=== PATIENT | male | born 1970 | race Caucasian/White ===

== ENCOUNTER 2017-08-21 20:12 | Emergency (ER) | payer BC ==
[2017-08-21 20:25] VITALS: BP 156/104
[2017-08-21] MEDS ORDERED: Doxycycline 100 MG Cap PO ONE (21:12)
--- NOTE | 2017-08-21 21:18 | EDM.PDOC ---
ED HPI GENERAL MEDICAL PROBLEM - General Chief Complaint: Burn Stated Complaint: BURN ON LEFT WRIST Time Seen by Provider: 08/21/17 20:23 Source of Information: Reports: Patient History Limitations: Reports: No Limitations - History of Present Illness INITIAL COMMENTS - FREE TEXT/NARRATIVE: The patient is a 47-year-old male with chief complaint of burn to the left wrist. Injury occurred almost a week ago. He burned it on some hot radiator fluid. He had been caring for it at home and today became concerned because it seemed more painful and had a little bit more redness around it. No new injury. Pain is moderate. Worse with hand movements. No fevers. No additional complaints. He has been washing it when he showers. Left Wrist Pain Score (Numeric/FACES): 6 - Related Data Allergies Allergy/AdvReac Type Severity Reaction Status Date / Time No Known Allergies Allergy Verified 08/21/17 20:25 Home Meds: Home Meds Doxycycline [Vibramycin] 100 mg PO DAILY #20 cap 08/21/17 [Rx] Past Medical History - Past Health History Medical/Surgical History: Denies Medical/Surgical History Neurological History: Reports: Migraines Dermatologic History: Reports: Other (See Below) Other Dermatologic History: hx previous burn to foot Social & Family History - Family History Family Medical History: Noncontributory - Tobacco Use Smoking Status *Q: Current Every Day Smoker Years of Tobacco use: 20 Packs/Tins Daily: 2 Used Tobacco, but Quit: No Second Hand Smoke Exposure: No - Caffeine Use Caffeine Use: Reports: Coffee - Alcohol Use Days Per Week of Alcohol Use: 0 - Recreational Drug Use Recreational Drug Use: No ED ROS GENERAL - Review of Systems Review Of Systems: See Below Constitutional: Denies: Fever Cardiovascular: Reports: No Symptoms Musculoskeletal: Reports: Arm Pain Skin: Reports: Burn(s) ED EXAM, BURN/SMOKE INHALATION - Physical Exam Exam: See Below Exam Limited By: No Limitations General Appearance: Alert, WD/WN, No Apparent Distress Eye Exam: Bilateral Eye: Normal Inspection Ears (Abbreviated): Normal External Exam Mouth/Throat: No Symptoms Reported Head: No Symptoms Neck: No Symptoms Respiratory: No Respiratory Distress Cardiovascular: Normal Peripheral Pulses Extremities: Other (Left upper extremity: Palmar surface of the left wrist has a approximately 3 x 2 cm patch of erythema and old-appearing blisters consistent with old partial thickness burn. There is mild surrounding erythema and tenderness. Mild warmth. No induration. No fluctuance. No purulence.) Neurological: Alert, Oriented Psychiatric: Normal Affect, Normal Mood Skin Exam: Warm, Dry, Intact, Normal Color, No Rash Course - Vital Signs Last Recorded V/S: Last Vital Signs Temp 36.2 C 08/21/17 20:22 Pulse 68 08/21/17 20:22 Resp 18 08/21/17 20:22 BP 156/104 H 08/21/17 20:22 Pulse Ox 97 08/21/17 20:22 - Orders/Labs/Meds Meds: Medications Discontinued Medications Generic Name Dose Route Start Last Admin Trade Name Freq PRN Reason Stop Dose Admin Doxycycline Hyclate 100 mg 08/21/17 21:12 08/21/17 21:19 Vibramycin PO 08/21/17 21:13 100 mg ONETIME ONE Administration - Re-Assessments/Exams Free Text/Narrative Re-Assessment/Exam: 08/21/17 23:25 Patient with old appearing burn injury, partial thickness, small and localized to the anterior surface of the left wrist, with possible early cellulitis. He has had increased pain and erythema, we will treat with doxycycline. Discussed need for follow-up and provided clinic phone number for him to arrange during daytime hours. Discussed return precautions. Departure - Departure Time of Disposition: 21:13 Disposition: Home, Self-Care 01 Clinical Impression: Burn of left wrist Qualifiers: Encounter type: initial encounter Burn degree: partial thickness (2nd degree) Qualified Code(s): T23.272A - Burn of second degree of left wrist, initial encounter - Discharge Information Prescriptions: Doxycycline [Vibramycin] 100 mg PO DAILY #20 cap Instructions: Burn Care, Adult, [id number] Referrals: PCP,None [Primary Care Provider] - Forms: ED Department Discharge Additional Instructions: 1. Keep wound clean and dry. Wash daily and cover with antibiotic ointment. 2. Take doxycycline as prescribed. 3. Take ibuprofen as prescribed for pain. You may take tylenol (acetaminophen) as needed in addition to ibuprofen. 4. Follow up with clinic provider later this week for a wound check. 5. Return to the ED if you have worsening pain, redness, swelling, or fever.
== END 2017-08-21 21:45 | disposition home or self-care (01) ==
LOC: JD.ED 20:12
DX: T23.272A Burn of second degree of left wrist, initial encounter (principal); F17.210 Nicotine dependence, cigarettes, uncomplicated; X16.XXXA Contact with hot heating appliances, radiators and pipes, initial encounter
CPT/HCPCS: 99283; A9270

== ENCOUNTER 2018-07-10 12:27 | Emergency (ER) | payer BC ==
[2018-07-10 12:52] VITALS: BP 139/102
--- NOTE | 2018-07-10 12:53 | EDM.PDOC ---
ED HPI GENERAL MEDICAL PROBLEM - General Chief Complaint: Respiratory Problem Stated Complaint: LUNG ON RIGHT SIDE HURT Time Seen by Provider: 07/10/18 12:43 Source of Information: Reports: Patient, RN Notes Reviewed History Limitations: Reports: No Limitations - History of Present Illness INITIAL COMMENTS - FREE TEXT/NARRATIVE: Patient is a 48-year-old male who presents to the ED today for evaluation of right-sided chest achiness and a cough for 3 days. The patient admits to being a heavy smoker, where he smokes 2-3 packs per day. 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 The patient states he has had symptoms similar to this in the past, and has been provided with antibiotics for this. He had been told that this was a "smokers infection". He states that he does have a cough however it is not productive, he stated that a few days ago he also had a stuffy nose. He denies any shortness of breath, chest pain, fevers or chills, or nausea vomiting diarrhea. He did state that he had just come back from [place], [place]. He further denies any heart history or MIs, however he states he does take blood pressure medication. He states he does not use any alcohol or drugs. He did take one dose of Tylenol yesterday for the achiness. Right Chest Pain Score (Numeric/FACES): 5 - Related Data Allergies Allergy/AdvReac Type Severity Reaction Status Date / Time No Known Allergies Allergy Verified 07/10/18 12:52 Home Meds: Home Meds Losartan/Hydrochlorothiazide [Losartan-HCTZ 50-12.5 MG] 1 tab PO DAILY 07/10/18 [History] Past Medical History - Past Health History Medical/Surgical History: Denies Medical/Surgical History Neurological History: Reports: Migraines Dermatologic History: Reports: Other (See Below) Other Dermatologic History: hx previous burn to foot Social & Family History - Family History Family Medical History: Noncontributory - Tobacco Use Smoking Status *Q: Current Every Day Smoker Tobacco Use Within Last Twelve Months: Cigarettes Packs/Tins Daily: 3 - Caffeine Use Caffeine Use: Reports: Coffee - Alcohol Use Alcohol Use History: No - Recreational Drug Use Recreational Drug Use: No - Living Situation & Occupation Living situation: Reports: Occupation: Employed ED ROS GENERAL - Review of Systems Review Of Systems: See Below Constitutional: Denies: Fever, Chills, Malaise HEENT: Reports: No Symptoms Respiratory: Reports: Cough. Denies: Shortness of Breath, Wheezing, Sputum Cardiovascular: Reports: No Symptoms Endocrine: Reports: No Symptoms GI/Abdominal: Reports: No Symptoms : Reports: No Symptoms Musculoskeletal: Reports: Other (right sided chest wall achiness) Skin: Reports: No Symptoms Neurological: Reports: No Symptoms Psychiatric: Reports: No Symptoms Hematologic/Lymphatic: Reports: No Symptoms Immunologic: Reports: No Symptoms ED EXAM, GENERAL - Physical Exam Exam: See Below Exam Limited By: No Limitations General Appearance: Alert, WD/WN, No Apparent Distress Eye Exam: Bilateral Eye: Normal Inspection Ears: Normal External Exam Nose: Normal Inspection Throat/Mouth: Normal Inspection, Normal Teeth, Normal Oropharynx, No Airway Compromise Head: Atraumatic, Normocephalic Neck: Normal Inspection Respiratory/Chest: No Respiratory Distress, No Accessory Muscle Use, Chest Non- Tender, Rales (clears with cough) Cardiovascular: Normal Peripheral Pulses, Regular Rate, Rhythm, No Murmur GI/Abdominal: Normal Bowel Sounds, Soft, Non-Tender, No Distention Extremities: Normal Inspection, Normal Capillary Refill Neurological: Alert, Oriented, Normal Cognition, No Motor/Sensory Deficits Psychiatric: Normal Affect, Normal Mood Skin Exam: Warm, Dry, Intact, Normal Color, No Rash Course - Vital Signs Last Recorded V/S: Last Vital Signs Temp 97.4 F 07/10/18 12:48 Pulse 75 07/10/18 12:48 Resp 16 07/10/18 12:48 BP 139/102 H 07/10/18 12:48 Pulse Ox 98 07/10/18 12:48 - Re-Assessments/Exams Free Text/Narrative Re-Assessment/Exam: 07/10/18 13:15 Patient presents to the ED for evaluation of right-sided chest achiness and cough. Did order a chest x-ray for further evaluation. 07/10/18 13:57 Patient's chest x-ray does not demonstrate anything acute. This is likely a viral illness in nature, he was requesting antibiotics however it do not feel that that is appropriate at this time. We'll recommend that he follows up with primary care doc within the next week if this cough does not go away. Have given general recommendations. Departure - Departure Time of Disposition: 13:47 Disposition: Home, Self-Care 01 Condition: Fair Clinical Impression: Cough - Discharge Information *PRESCRIPTION DRUG MONITORING PROGRAM REVIEWED*: No *COPY OF PRESCRIPTION DRUG MONITORING REPORT IN PATIENT JONATHAN: No Instructions: Steps to Quit Smoking, [id number], Cough, Adult, [id number], Acute Bronchitis, Adult, [id number] Referrals: Moraima Palomino PA-C [Primary Care Provider] - Forms: ED Department Discharge Additional Instructions: He has been evaluated in the ED today for urinary right-sided chest achiness/ cough. This is most likely due to a viral illness. Your chest x-ray did not show any acute signs of pneumonia. Treatment for this is mainly over the counter cough cold remedies. No antibiotics are indicated at this time. You may take 500 mg Tylenol/600 mg ibuprofen every 6 hours as needed for relief of general aches. Recommend that if you do not have a primary care provider that you set up care with a primary care provider please call [phone] to do so. Please return to ED if your symptoms change or worsen.
--- NOTE | 2018-07-10 13:40 | CR ---
Chest: Two views of the chest were obtained. Comparison: Prior chest x-ray of 12/13/16. Heart size is normal. Tortuous thoracic aorta is seen. Lungs show no acute parenchymal change. Slight nodule is noted within the right mid to lower lung believed to be stable. Bony structures are intact. Impression: 1. Nothing acute is appreciated on two-view chest x-ray. Diagnostic code #2
== END 2018-07-10 14:05 | disposition home or self-care (01) ==
LOC: JD.ED 12:27
DX: R05 Cough (principal); F17.210 Nicotine dependence, cigarettes, uncomplicated; Z79.899 Other long term (current) drug therapy
CPT/HCPCS: 71046; 71046-26; 99282; 99283-25

== ENCOUNTER 2019-12-11 23:51 | Emergency (ER) | payer BC ==
[2019-12-12 00:05] VITALS: BP 144/96; PULSE 60
--- NOTE | 2019-12-12 00:16 | EDM.PDOC ---
ED HPI GENERAL MEDICAL PROBLEM - General Chief Complaint: ENT Problem Stated Complaint: NOSE BLEED Time Seen by Provider: 12/12/19 00:15 Source of Information: Reports: Patient History Limitations: Reports: No Limitations - History of Present Illness INITIAL COMMENTS - FREE TEXT/NARRATIVE: 49-year-old male presents to the ED with recurrent left-sided nosebleeds off and on for the last 3 days. Nosebleed started spontaneously without any nasal trauma. Similar type problem 10 years ago. Patient has had his third nosebleed in the last 24 hours. Bleeding bad enough to run down the back of his throat and the other side of his nares. This nosebleed awoke him from sleep tonight. 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 Onset: Sudden Onset Date: 12/09/19 Duration: Day(s):, Intermittent (Been nosebleeds left side off and on for the last 3 days.) Location: Reports: Face (Left-sided epistaxis.) Quality: Reports: Other Severity: Moderate (Recurrent nosebleed left side) Improves with: Reports: Other (And then also closed) Worsens with: Reports: None Context: Denies: Activity, Exercise, Lifting, Sick Contact, Trauma, Other Associated Symptoms: Reports: Cough. 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 (see below) (None.) Headache Pain Score (Numeric/FACES): 8 - Related Data Allergies Allergy/AdvReac Type Severity Reaction Status Date / Time No Known Allergies Allergy Verified 12/12/19 00:05 Home Meds: Home Meds Losartan/Hydrochlorothiazide [Losartan-HCTZ 50-12.5 MG] 1 tab PO DAILY 07/10/18 [History] Past Medical History - Past Health History Medical/Surgical History: Denies Medical/Surgical History Cardiovascular History: Reports: Hypertension Neurological History: Reports: Migraines Dermatologic History: Reports: Other (See Below) Other Dermatologic History: hx previous burn to foot Social & Family History - Family History Family Medical History: Noncontributory - Tobacco Use Smoking Status *Q: Current Every Day Smoker Tobacco Use Within Last Twelve Months: Snuff/Dip Years of Tobacco use: 40 Packs/Tins Daily: 2 - Caffeine Use Caffeine Use: Reports: Coffee - Recreational Drug Use Recreational Drug Use: No - Living Situation & Occupation Living situation: Reports: Occupation: Employed ED ROS ENT - Review of Systems Review Of Systems: See Below Constitutional: Denies: Fever, Chills, Weakness, Fatigue, Decreased Appetite, Weight Loss HEENT: Reports: Nosebleed (Sided epistaxis intermittently x3 days.) Respiratory: Reports: Cough (Only nonproductive.). Denies: Shortness of Breath, Wheezing, Pleuritic Chest Pain Cardiovascular: Reports: Blood Pressure Problem. Denies: Chest Pain, Claudication, Dyspnea on Exertion, Edema, Lightheadedness, Orthopnea Endocrine: Reports: No Symptoms GI/Abdominal: Reports: No Symptoms : Reports: No Symptoms Musculoskeletal: Reports: No Symptoms Skin: Reports: No Symptoms Neurological: Reports: No Symptoms Psychiatric: Reports: No Symptoms Hematologic/Lymphatic: Reports: No Symptoms Immunologic: Reports: No Symptoms ED EXAM, ENT - Physical Exam Exam: See Below Exam Limited By: No Limitations General Appearance: Alert, WD/WN, Anxious, Mild Distress, Other (Temperature is 36.3 heart rate 60 and sinus respiratory of 20 BP 1 4496 pulse ox 97% room air) Eye Exam: Bilateral Eye: Normal Inspection, Proptosis Nose: Active Bleeding (Left nasal septum anteriorly.), Other (Blood in the floor and septum of the right nares. No blood in the left nasopharynx oropharynx as well.) Mouth/Throat: Other (Bleeding left) Head: Atraumatic, Normocephalic Neck: Normal Inspection, Supple, Non-Tender, Full Range of Motion. No: Lymphadenopathy (L), Lymphadenopathy (R) Respiratory/Chest: Lungs Clear, Normal Breath Sounds, No Accessory Muscle Use, Respiratory Distress Cardiovascular: Normal Peripheral Pulses, Regular Rate, Rhythm, No Edema, No Gallop, No Murmur, No Rub Back: Normal Inspection, Full Range of Motion. No: CVA Tenderness (L), CVA Tenderness (R) Extremities: Normal Inspection, Normal Range of Motion, Non-Tender, No Pedal Edema Neurological: Alert, Oriented, CN II-XII Intact, Normal Cognition Psychiatric: Anxious Skin: Warm, Dry, Intact, Normal Color, No Rash Course - Vital Signs Last Recorded V/S: Last Vital Signs Temp 36.3 C 07/30/20 00:00 Pulse 60 12/12/19 00:00 Resp 20 12/12/19 00:00 BP 144/96 H 12/12/19 00:00 Pulse Ox 97 12/12/19 00:00 - Radiology Interpretation Free Text/Narrative:: 49-year-old male presents to the ED for evaluation of recurrent left-sided epistaxis for the last 3 days. Awoke tonight with active bleeding from the left naris has soaked nearly a full towel of blood over the last hour and a half. P atient has had recurrent nosebleeds for the last 3 days. No nasal trauma. Exam reveals left anterior nasal septal bleeding. Area was cauterized with silver nitrate. I will review him in the next 10 minutes to make sure that nosebleed has come under good control. - Re-Assessments/Exams Free Text/Narrative Re-Assessment/Exam: 12/12/19 00:51 check of the nose reveals some mild blood in the floor of the nares. Place of cautery with silver nitrate on the anterior nasal septum does not reveal any obvious active bleeding. Patient will be discharged home. Advised bacitracin or Polysporin ointment into each nares at bedtime for the next week to prevent further nosebleeds. Usually he has a ENT surgical consultation later today in [place] which he plans to keep. 12/12/19 01:04: The patient was getting ready to leave he appreciated rebleed from the left naris. On reexamination he was bleeding from a just anterior to where we had cauterized and perhaps 1 vessel superior to where we had cauterized. Both of these areas were treated with silver nitrate. Bleeding appeared to come under quick control. Plan will review in 10 minutes. 12/12/19 01:23: On review no further bleeding. Patient feels fine and will therefore discharged to home. Departure - Departure Time of Disposition: 01:24 Disposition: Home, Self-Care 01 Condition: Fair Clinical Impression: Frequent nosebleeds, Left-sided nosebleed, Epistaxis, Epistaxis - Discharge Information *PRESCRIPTION DRUG MONITORING PROGRAM REVIEWED*: Not Applicable *COPY OF PRESCRIPTION DRUG MONITORING REPORT IN PATIENT JONATHAN: Not Applicable Instructions: Nosebleed, [id number] Referrals: Moraima Palomino PA-C [Primary Care Provider] - Forms: ED Department Discharge Additional Instructions: Evaluation in the emergency room tonight in regards to recurrent nosebleeds for the last 3 days from the left side of your nose. Examination reveals active bleeding come from the anterior nasal septum on the left side. Breathing has entered the back of your throat and is been coming out the right side of your nose. However on examination I do not see any significant inflammation of the right side of the nose. Silver nitrate application to the anterior nasal septum carried out x3 with good control of bleeding. Reexamination revealed some blood in the floor of the nasal canal which I think has been sitting there in the floor of the nose. No active bleeding appreciated on second examination. Suggest home to sleep. At the time of discharge by the nursing staff patient appreciated recurrent left-sided nasal bleeding. On reinspection I found a small bleed anterior to where we had cauterized and 1 superior to where we had cauterized. Silver nitrate application was done to both of these areas x1 and bleeding came under control. I reexamined him every 10 minutes for the next half hour and no further bleeding was appreciated. No nasal irritation such as blowing her nose or rubbing her nose for at least 48 hours. Suggest application of Polysporin or bacitracin ointment or Vaseline on the end of a Q-tip into each side of your nose at bedtime coating the nasal septum or the midline of your nose for the next week. This allows they are to get off of the area and allows the underlying blood vessels to heal. Follow up with your nose and throat surgeon as planned. Sepsis Event Note (ED) - Evaluation Sepsis Screening Result: No Definite Risk - Focused Exam Vital Signs: Vital Signs Temp Pulse Resp BP Pulse Ox 12/12/19 00:00 36.3 C 60 20 144/96 H 97
== END 2019-12-12 01:38 | disposition home or self-care (01) ==
LOC: JD.ED 23:51
DX: R04.0 Epistaxis (principal); I10 Essential (primary) hypertension; F17.290 Nicotine dependence, other tobacco product, uncomplicated; Z79.899 Other long term (current) drug therapy
CPT/HCPCS: 30901; 99282; 99283-25

== ENCOUNTER 2019-12-12 04:10 | Emergency (ER) | payer BC ==
[2019-12-12 04:17] VITALS: BP 135/102; PULSE 60
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
[2019-12-12] MEDS ORDERED: Oxymetazoline 0.05% Nasal Spray 30 ML Bottle NAS ONE (04:57)
== END 2019-12-12 06:16 ==
LOC: JD.ED 04:10
DX: R04.0 Epistaxis (principal); I10 Essential (primary) hypertension; Z79.899 Other long term (current) drug therapy
CPT/HCPCS: 30901; 36415; 80053; 85025; 85610; 85730; 99284; A9270; 99282

== ENCOUNTER 2022-04-30 19:54 | Emergency (ER) | payer BC ==
[2022-04-30 20:04] VITALS: BP 162/94; PULSE 71
== END 2022-04-30 22:15 | disposition home or self-care (01) ==
LOC: JD.ED 19:54
DX: R04.0 Epistaxis (principal); E11.9 Type 2 diabetes mellitus without complications; F17.210 Nicotine dependence, cigarettes, uncomplicated; Z88.6 Allergy status to analgesic agent; Z79.899 Other long term (current) drug therapy
CPT/HCPCS: 99283; C9046

== ENCOUNTER 2023-10-01 16:45 | Emergency (ER) | payer BC ==
[2023-10-01 16:54] VITALS: BP 123/81; PULSE 62
== END 2023-10-01 22:40 | disposition home or self-care (01) ==
LOC: JD.ED 16:45
DX: S20.211A Contusion of right front wall of thorax, initial encounter (principal); I10 Essential (primary) hypertension; Z88.8 Allergy status to other drugs, medicaments and biological substances; Z79.899 Other long term (current) drug therapy; E11.9 Type 2 diabetes mellitus without complications; W22.8XXA Striking against or struck by other objects, initial encounter
CPT/HCPCS: 71111; 71111-26; 93005; 93010; 99284; 99285

== ENCOUNTER 2024-07-17 10:38 | Emergency (ER) | payer OTHER, BC ==
[2024-07-17 13:19] LABS: BASOPHILS ABSOLUTE AUTO 0.1 K/mm3 (0.0-0.2); BASOPHILS PERCENT AUTO 0.7 % (0.0-1.0); EOSINOPHILS ABSOLUTE AUTO 0.3 K/mm3 (0.0-0.4); EOSINOPHILS PERCENT AUTO 3.3 % (0.0-6.0); HEMATOCRIT 44.2 % (42.0-52.0); HEMOGLOBIN 15.6 gm/dl (14.0-18.0); IMMATURE GRAN ABSOLUTE AUTO 0.02 K/mm3 (0.00-0.05); IMMATURE GRAN PERCENT AUTO 0.2 % (0.0-0.4); LYMPHOCYTES ABSOLUTE AUTO 3.1 K/mm3 (1.0-4.8); LYMPHOCYTES PERCENT AUTO 38.4 % (24.0-44.0); MEAN CORPUSCULAR HEMOGLOBIN 31.6 pg (28.0-32.0); MEAN CORPUSCULAR HGB CONC 35.3 g/dl (32.0-36.0); MEAN CORPUSCULAR VOLUME 89.5 fl (83.0-99.0); MEAN PLATELET VOLUME 9.5 fl (9.4-12.4); MONOCYTES ABSOLUTE AUTO 0.5 K/mm3 (0.0-0.8); MONOCYTES PERCENT AUTO 5.7 % (0.0-8.0); NEUTROPHILS ABSOLUTE AUTO 4.2 K/mm3 (1.8-7.7); NEUTROPHILS PERCENT AUTO 51.7 % (41.0-71.0); PLATELET COUNT,PLT 296 K/mm3 (150-400); RED BLOOD CELL COUNT 4.94 M/mm3 (4.52-5.90)
[2024-07-17 13:45] LABS: A/G RATIO 1.1 (1-2); ALBUMIN 3.7 g/dl (3.4-5.0); ANION GAP 8.2 (5-15); BILIRUBIN TOTAL 0.3 mg/dL (0.2-1.0); BUN/CREATININE RATIO 14.4 (14-18); CALCIUM 9.5 mg/dL (8.5-10.1); CREATININE 0.9 mg/dL (0.7-1.3); EST CRCL DRUG DOSING (CG) 92.74 mL/min; POTASSIUM,K 3.2 mEq/L (3.5-5.1); PROTEIN TOTAL,TP 7.1 g/dl (6.4-8.2)
[2024-07-17] MEDS: Potassium Chloride 20 MEQ Tab.ER PO ONE (14:03)
[2024-07-17 14:51] VITALS: BP 142/68; PULSE 68
== END 2024-07-17 14:18 | disposition home or self-care (01) ==
LOC: JD.ED 10:38
DX: E87.6 Hypokalemia (principal); I10 Essential (primary) hypertension; E11.9 Type 2 diabetes mellitus without complications; Z79.899 Other long term (current) drug therapy; Z88.6 Allergy status to analgesic agent
CPT/HCPCS: 36415; 80053; 85025; 99284; A9270; 99283